=== PATIENT | female | born 1950 | race Caucasian/White ===

== ENCOUNTER 2021-03-01 08:34 | Emergency (ER) | payer MEDICARE, OTHER ==
[2021-03-01] MEDS ORDERED: NORCO 5-325 TA1 EACH PO (09:42)
[2021-03-01] MEDS ORDERED: EC-NAPROSYN375 MG PO (09:42)
[2021-03-24] MEDS ORDERED: ALLERGY RELIEF10 M1 PO (14:10)
[2021-03-24] MEDS ORDERED: ACID CONTROLLER20 MG PO (14:51)
[2021-03-31] MEDS ORDERED: PERCOCET 5-3251 EACH PO (09:10)
[2021-04-01] MEDS ORDERED: TAB-A-VITE TA400 MC1 PO (09:24)
[2021-04-01] MEDS ORDERED: FEOSOL325 MG PO (09:24)
[2021-04-01] MEDS ORDERED: LAXATIVE SUPPOS10 MG PR (09:24)
[2021-04-01] MEDS ORDERED: STIMULANT LAXA1 EACH PO (09:24)
[2021-04-01] MEDS ORDERED: MILK OF MA400 MG/5 M PO (09:24)
[2021-04-01] MEDS ORDERED: OXYCODONE-ACET1 EAC1 PO (09:24)
[2021-04-01] MEDS ORDERED: DULCOLAX5 MG PO (09:24)
[2021-04-01] MEDS ORDERED: ASPIRIN81 MG PO (09:24)
[2021-04-01] MEDS ORDERED: ZOFRAN4 M1 PO (09:24)
== END 2021-03-01 10:05 | disposition home or self-care (01) ==
LOC: FER 08:34
DX: S42.211A Unspecified displaced fracture of surgical neck of right humerus, initial encounter for closed fracture (principal); S00.211A Abrasion of right eyelid and periocular area, initial encounter; S80.212A Abrasion, left knee, initial encounter; S80.211A Abrasion, right knee, initial encounter; S60.511A Abrasion of right hand, initial encounter; W01.0XXA Fall on same level from slipping, tripping and stumbling without subsequent striking against object, initial encounter; Y93.01 Activity, walking, marching and hiking; Y92.009 Unspecified place in unspecified non-institutional (private) residence as the place of occurrence of the external cause
CPT/HCPCS: 73030; 90471; 90715